=== PATIENT | male | born 1985 | race African-American/Black ===

== ENCOUNTER 2017-03-19 12:45 | Emergency (ER) | payer SELFPAY ==
[~2017-03-19] VITALS: Ht 188 cm; Wt 75.0 kg
[2017-03-19] MEDS ORDERED: IOHEXOL 350 MG/ML 10 ML VIAL (for RAD DIAG) IVCONTRAST ONE (12:46)
[2017-03-19] MEDS ORDERED: SODIUM CHLOR 0.9% 1000 ML INJ 1,000 ML IV SCH (13:02)
--- NOTE | 2017-03-19 13:02 | PD ---
HPI Chief Complaint: Abdominal pain Time Seen by Provider: 13:02 Travel History International Travel<30 days: No Contact w/Intl Traveler<30days: No Traveled to known affect area: No History of Present Illness HPI 32-year-old Afro-[place]og[place] male presents the emergency department via EMS with complaints of abdominal pain and inability to eat. Patient has history of 5 biliary stents. The last that was placed on February 19, 2017. Patient states he is visiting here from [facility]. He is here for the next several days but states he couldn't wait to go home to see his commercial green retrofit architect. Patient states the pain is now 10 out of 10, he is nauseous, and unable to eat for the past 2 days. He denies fever, chills, or changes in his bowels or urination. Pain is centralized to the abdomen. He has no shortness of breath or chest pain. He has no known drug allergies. PFSH Social History Alcohol Use: Yes Tobacco Use: Yes Substance Use: No Allergies-Medications (Allergen,Severity, Reaction): Coded Allergies: No Known Allergies (Unverified , 03/19/17) Reported Meds & Prescriptions Reported Meds & Active Scripts Active Ultram (Tramadol HCl) 50 Mg Tab 50 Mg PO Q6H PRN Omeprazole 40 Mg Cap 40 Mg PO DAILY Creon (Pancrelipase) 3,000-9,500-15,000 Units Cap 1 Cap PO TIDPC Reported Alprazolam 2 Mg Tab 2 Mg PO BID [Stelazine] 5 Mg PO BID Trazodone (Trazodone HCl) 300 Mg Tab 300 Mg PO HS Seroquel (Quetiapine Fumarate) 300 Mg Tab 600 Mg PO HS Metoprolol Succinate ER 24 HR (Metoprolol Succinate) 50 Mg Tab 50 Mg PO BID Lantus Inj (Insulin Glargine) 1,000 Unit/10 Ml Vial 10 Units SQ DAILY Lantus Inj (Insulin Glargine) 1,000 Unit/10 Ml Vial 30 Units SQ HS Review of Systems Except as stated in HPI: all other systems reviewed are Neg General / Constitutional: No: Fever, Chills Eyes: No: Visual changes HENT: No: Headaches Cardiovascular: No: Chest Pain or Discomfort Respiratory: No: Shortness of Breath Gastrointestinal: Positive: Nausea, Abdominal Pain, Loss of Appetite, No: Vomiting, Diarrhea, Hematemesis, Hematochezia, Constipation, Changes in Bowel Habits, Indigestion, Dysphagia Genitourinary: No: Urgency, Frequency, Dysuria Musculoskeletal: No: Pain Skin: No Rash Neurologic: No: Weakness Psychiatric: No: Depression Endocrine: No: Polydipsia Hematologic/Lymphatic: No: Easy Bruising Physical Exam Narrative GENERAL: Patient appears in moderate distress. SKIN: Warm and dry. Normal color. Normal turgor. HEAD: Atraumatic. Normocephalic. EYES: Pupils equal and round. No scleral icterus. No injection or drainage. ENT: No nasal bleeding or discharge. Mucous membranes pink and moist. Pharynx is clear. Airway is patent. NECK: Trachea midline. Supple nontender. CARDIOVASCULAR: Regular rate and rhythm. RESPIRATORY: No accessory muscle use. Clear to auscultation. Breath sounds equal bilaterally. GASTROINTESTINAL: Abdomen soft, moderate generalized epigastric tenderness, nondistended. No CVA tenderness. Hepatic and splenic margins not palpable. MUSCULOSKELETAL: Extremities without clubbing, cyanosis, or edema. No obvious deformities. NEUROLOGICAL: Awake and alert. No obvious cranial nerve deficits. Motor grossly within normal limits. Five out of 5 muscle strength in the arms and legs. Normal speech. PSYCHIATRIC: Appropriate mood and affect; insight and judgment normal. Data Data Last Documented VS Vital Signs Date Time Temp Pulse Resp B/P (MAP) Pulse Ox O2 Delivery O2 Flow Rate FiO2 03/19/17 15:28 63 12 171/107 (128) 100 Room Air 03/19/17 13:33 98.1 Orders Orders Complete Blood Count With Diff (03/19/17 13:02) Comprehensive Metabolic Panel (03/19/17 13:02) Lipase (03/19/17 13:02) Lactic Acid (03/19/17 13:02) Prothrombin Time / Inr (Pt) (03/19/17 13:02) Act Partial Throm Time (Ptt) (03/19/17 13:02) Ct Abd/Pel W Iv Contrast(Rout) (03/19/17 13:02) Iv Access Insert/Monitor (03/19/17 13:02) Ecg Monitoring (03/19/17 13:02) Oximetry (03/19/17 13:02) NPO (03/19/17 13:02) Morphine Inj (Morphine Inj) (03/19/17 13:15) Ondansetron Inj (Zofran Inj) (03/19/17 13:15) Sodium Chlor 0.9% 1000 Ml Inj (Ns 1000 M (03/19/17 13:02) Sodium Chloride 0.9% Flush (Ns Flush) (03/19/17 13:15) Electrocardiogram (03/19/17 13:02) Chest, Single Ap (03/19/17 13:02) Ketorolac Inj (Toradol Inj) (03/19/17 15:15) Iohexol 350 Inj (Omnipaque 350 Inj) (03/19/17 12:46) Pantoprazole (Protonix) (03/19/17 16:45) Ed Discharge Order (03/19/17 16:36) Labs Laboratory Tests Test 03/19/17 13:49 White Blood Count 8.5 TH/MM3 Red Blood Count 5.90 MIL/MM3 Hemoglobin 14.3 GM/DL Hematocrit 45.3 % Mean Corpuscular Volume 76.7 FL Mean Corpuscular Hemoglobin 24.2 PG Mean Corpuscular Hemoglobin Concent 31.5 % Red Cell Distribution Width 13.9 % Platelet Count 222 TH/MM3 Mean Platelet Volume 7.8 FL Neutrophils (%) (Auto) 63.2 % Lymphocytes (%) (Auto) 28.3 % Monocytes (%) (Auto) 6.1 % Eosinophils (%) (Auto) 2.0 % Basophils (%) (Auto) 0.4 % Neutrophils # (Auto) 5.3 TH/MM3 Lymphocytes # (Auto) 2.4 TH/MM3 Monocytes # (Auto) 0.5 TH/MM3 Eosinophils # (Auto) 0.2 TH/MM3 Basophils # (Auto) 0.0 TH/MM3 CBC Comment DIFF FINAL Differential Comment Prothrombin Time 10.1 SEC Prothromb Time International Ratio 0.9 RATIO Activated Partial Thromboplast Time 27.0 SEC Blood Urea Nitrogen 5 MG/DL Creatinine 0.72 MG/DL Random Glucose 224 MG/DL Total Protein 6.9 GM/DL Albumin 3.3 GM/DL Calcium Level 8.5 MG/DL Alkaline Phosphatase 95 U/L Aspartate Amino Transf (AST/SGOT) 15 U/L Alanine Aminotransferase (ALT/SGPT) 14 U/L Total Bilirubin 0.2 MG/DL Sodium Level 137 MEQ/L Potassium Level 4.3 MEQ/L Chloride Level 102 MEQ/L Carbon Dioxide Level 28.6 MEQ/L Anion Gap 6 MEQ/L Estimat Glomerular Filtration Rate 152 ML/MIN Lactic Acid Level 1.0 mmol/L Lipase 72 U/L [facility] Medical Decision Making Medical Screen Exam Complete: Yes Emergency Medical Condition: Yes Differential Diagnosis Abdominal pain. Biliary colic. Pancreatitis. Acute hepatitis. Narrative Course Patient appears in moderate distress but medically stable. Labs ordered including CBC, CMP, lipase, urinalysis, PT PTT and INR. EKG is ordered. It shows normal sinus rhythm, with possible right ventricular conduction delay. This reviewed with Dr. Dennis. Chest x-ray and abdominal CT with IV contrast was ordered. IV access is obtained patient is given 4 mg Zofran IV as well as 4 mg morphine IV. Patient is given 1000 mL normal saline bolus. Chest x-ray is unremarkable except for blunting of the left costophrenic angle.. CBC is unremarkable. Coagulation studies are normal. Chemistries are normal except for random glucose of 224. Lipase is 72. Albumin 3.3. Abdominal CT scan shows no acute process per radiologist. It is in position with small pseudocyst near it without obvious signs of acute findings. Patient was given Toradol 30 mg IV. Patient discussed with Dr. Dennis. Patient is felt to be medically stable for discharge home. Patient will be treated with Creon 3 times a day. Patient also given omeprazole 40 mg daily #30. Patient given Ultram 50 mg one every 6 hours when necessary pain #20. Patient is to follow with his commercial green retrofit architect in [place] as discussed. Diagnosis Primary Impression: Chronic calcific pancreatitis Additional Impression: Abdominal pain Qualified Codes: R10.10 - Upper abdominal pain, unspecified Referrals: Director Learning And Development Primary Care Physician Patient Instructions: Biliary Colic (ED), Diet for Stomach Ulcers and Gastritis (ED), General Instructions Additional Instructions: Patient is felt to be medically stable for discharge home. Patient will be treated with Creon 3 times a day. Patient also given omeprazole 40 mg daily #30. Patient given Ultram 50 mg one every 6 hours when necessary pain #20. Patient is to follow with his commercial green retrofit architect in [place] as discussed. Med/Other Pt SpecificInfo: Prescription(s) given Scripts Tramadol (Ultram) 50 Mg Tab 50 MG PO Q6H Y for PAIN, #20 TAB 0 Refills Prov: Jose Dennis MD 03/19/17 Omeprazole (Omeprazole) 40 Mg Cap 40 MG PO DAILY, #30 CAP 0 Refills Prov: Jose Dennis MD 03/19/17 Pancrelipase (Creon) 3,000-9,500-15,000 Units Cap 1 CAP PO TIDPC for Digestive Aid, #90 CAP 0 Refills Prov: Jose Dennis MD 03/19/17 Disposition: 01 DISCHARGE HOME Condition: Stable Robin Sorto Mar 19, 2017 13:02
[2017-03-19] MEDS ORDERED: ONDANSETRON HCL 4 MG/2 ML VIAL IVP ONE (13:15)
[2017-03-19] MEDS ORDERED: MORPHINE SULFATE 4 MG/ML INJ IV PUSH ONE (13:15)
[2017-03-19 13:30] VITALS: BP 184/115; PULSE 63; RESP 12; TEMP 98.1; O2SAT 100
[2017-03-19 13:33] VITALS: BP 184/115; PULSE 64; RESP 12; TEMP 98.1; O2SAT 100
[2017-03-19] MEDS ORDERED: METO1TAB9 PO (13:52)
[2017-03-19] MEDS ORDERED: LANTUS2P SQ ×2 (13:52)
[2017-03-19] MEDS ORDERED: ALPR2TAB3 PO (13:56)
[2017-03-19] MEDS ORDERED: TRAZ300T2 PO (13:56)
[2017-03-19] MEDS ORDERED: SERO300T PO (13:56)
[2017-03-19] MEDS ORDERED: STELAZINE PO (13:56)
[2017-03-19] MEDS: SODIUM CHLORIDE 0.9% FLUSH 10 ML FLUSH IV FLUSH PRN ×2 (14:02→15:27)
[2017-03-19 14:15] VITALS: BP 186/115; PULSE 64; RESP 12; O2SAT 100
--- NOTE | 2017-03-19 14:22 | RADRPT ---
EXAM DATE/TIME: 03/19/2017 13:21 CORRECTION Corrected on: March 19, 2017; [facility] COMPARISON: No previous studies available for comparison. INDICATIONS : Short of breath, pain, nausea , evaluate for free air, pain left upper quadrant MEDICAL HISTORY : None. SURGICAL HISTORY : None. ENCOUNTER: Initial ACUITY: 3 days PAIN SCORE: Non-responsive. LOCATION: Bilateral chest FINDINGS: The heart and mediastinal structures are normal. There is blunting of the left costophrenic recess co nsistent with pleural thickening or tiny pleural effusion. No pulmonary vascular congestion is noted. No focal alveolar consolidation is noted. No definite free intraperitoneal air is noted. CONCLUSION: Blunting of the left costophrenic recess consistent with pleural thickening or tiny pleural effusion. No definite free intraperitoneal air. No focal infiltrate or pulmonary vascular congestion. González Ponce MD on March 19, 2017 at 14:20 Board Certified Radiologist. This report was verified electronically. González Ponce MD on March 19, 2017 at 14:24 Board Certified Radiologist. This report was verified electronically.
[2017-03-19 14:39] LABS: AUTOMATED NEUTROPHIL # 5.3 TH/MM3 (1.8-7.7); BASOPHIL % 0.4 % (0.0-2.0); EOSINOPHIL # 0.2 TH/MM3 (0-0.4); HEMATOCRIT 45.3 % (39.0-51.0); HEMO FLAGS DIFF FINAL; LYMPH % 28.3 % (9.0-44.0); LYMPHOCYTE # 2.4 TH/MM3 (1.0-4.8); MEAN CELL VOLUME 76.7 FL (80.0-100.0); MEAN CORPUSCULAR HEMOGLOBIN 24.2 PG (27.0-34.0); MEAN CORPUSCULAR HGB CONC 31.5 % (32.0-36.0); MONO % 6.1 % (0.0-8.0); NEUT % 63.2 % (16.0-70.0); PLATELET COUNT 222 TH/MM3 (150-450); RED CELL DISTRIBUTION WIDTH 13.9 % (11.6-17.2); WHITE BLOOD COUNT 8.5 TH/MM3 (4.0-11.0)
[2017-03-19 15:01] LABS: INTERNATIONAL NORMALIZED RATIO 0.9 RATIO; PROTHROMBIN TIME - PATIENT 10.1 SEC (9.8-11.6)
[2017-03-19 15:02] LABS: ALT (GPT) 14 U/L (12-78); ANION GAP 6 MEQ/L (5-15); AST (GOT) 15 U/L (15-37); BICARBONATE 28.6 MEQ/L (21.0-32.0); BLOOD UREA NITROGEN 5 MG/DL (7-18); CHLORIDE 102 MEQ/L (98-107); GLOMERULAR FILTRATION RATE 152 ML/MIN (>89); POTASSIUM 4.3 MEQ/L (3.5-5.1); SODIUM (NA) 137 MEQ/L (136-145)
[2017-03-19 15:04] LABS: ALKALINE PHOSPHATASE 95 U/L (45-117); TOTAL BILIRUBIN ADULT 0.2 MG/DL (0.2-1.0)
[2017-03-19] MEDS ORDERED: KETOROLAC TROMETHAMINE 30 MG/ML (IVP) VIAL IV PUSH ONE (15:15)
[2017-03-19 15:28] VITALS: BP 171/107; PULSE 63; RESP 12; O2SAT 100
--- NOTE | 2017-03-19 16:27 | RADRPT ---
EXAM DATE/TIME: 03/19/2017 15:35 [facility] COMPARISON: No previous studies available for comparison. INDICATIONS : Abdomen pain for a few days, nausea IV CONTRAST: 97 cc Omnipaque 350 (iohexol) IV ORAL CONTRAST: No oral contrast ingested. RADIATION DOSE: 6.64 CTDIvol (mGy) MEDICAL HISTORY : Cardiovascular disease. Diabetes SURGICAL HISTORY : Stent in stomach ENCOUNTER: Initial ACUITY: 2 days PAIN SCALE: 10/10 LOCATION: Abdomen TECHNIQUE: Volumetric scanning of the abdomen and pelvis was performed. Using automated exposure control and ad justment of the mA and/or kV according to patient size, radiation dose was kept as low as reasonably achievable to obtain optimal diagnostic quality images. DICOM format image data is available electro nically for review and comparison. FINDINGS: Numerous and extensive varices in the left upper quadrant extending under the left hemidiaphragm and into the left perisplenic region. LOWER LUNGS: There is a small area of irregular opacity on the superior most image of this scan anterior and right lower lung is of uncertain significance, but possibly represents scarring. No evidence of pleural e ffusion. No periesophageal varices. LIVER: Homogeneous density without lesion. There is no dilation of the biliary tree. No calcified gallston es. SPLEEN: Normal size without lesion. PANCREAS: Extensive punctate calcifications throughout the pancreas. There is a drain which courses through th e tail and body of the pancreas and with a pigtail loop either in the lesser sac or stomach; the loca tion of the proximal loop of the drain can not be determined with certainty. There is a 12 mm oval h ypodense area in the mid body anterior to the stent which could represent a small pseudocyst. There is poor delineation of the peripancreatic fat. No focal free fluid in the anterior pararenal space. KIDNEYS: Normal in size and shape. There is no mass, stone or hydronephrosis. ADRENAL GLANDS: Within normal limits. VASCULAR: There is no aortic aneurysm. BOWEL/MESENTERY: The stomach, small bowel, and colon demonstrate no acute abnormality. There is no free intraperitone al air or fluid. ABDOMINAL WALL: Within normal limits. RETROPERITONEUM: There is no lymphadenopathy. BLADDER: No wall thickening or mass. REPRODUCTIVE: Within normal limits. INGUINAL: There is no lymphadenopathy or hernia. MUSCULOSKELETAL: Within normal limits for patient age. CONCLUSION: 1. Findings suggest chronic pancreatitis with diffuse calcifications in the pancreas, 12 mm cyst in t he mid body, and a catheter which courses from tail of pancreas into either the stomach or the lesser sac. 2. No evidence of ascites. 3. Small area of scarring in the anterior right lower lung. The case has been discussed with ANGELINA Gregg MD on March 19, 2017 at 16:10 Board Certified Radiologist. This report was verified electronically.
[2017-03-19] MEDS ORDERED: CREO3000 PO (16:36)
[2017-03-19] MEDS ORDERED: TRAM50 PO (16:36)
[2017-03-19] MEDS ORDERED: OMEP40CA2 PO (16:36)
--- NOTE | 2017-03-19 16:44 | PD ---
Data Data Last Documented VS Vital Signs Date Time Temp Pulse Resp B/P (MAP) Pulse Ox O2 Delivery O2 Flow Rate FiO2 03/19/17 15:28 63 12 171/107 (128) 100 Room Air 03/19/17 13:33 98.1 Orders Orders Complete Blood Count With Diff (03/19/17 13:02) Comprehensive Metabolic Panel (03/19/17 13:02) Lipase (03/19/17 13:02) Lactic Acid (03/19/17 13:02) Prothrombin Time / Inr (Pt) (03/19/17 13:02) Act Partial Throm Time (Ptt) (03/19/17 13:02) Ct Abd/Pel W Iv Contrast(Rout) (03/19/17 13:02) Iv Access Insert/Monitor (03/19/17 13:02) Ecg Monitoring (03/19/17 13:02) Oximetry (03/19/17 13:02) NPO (03/19/17 13:02) Morphine Inj (Morphine Inj) (03/19/17 13:15) Ondansetron Inj (Zofran Inj) (03/19/17 13:15) Sodium Chlor 0.9% 1000 Ml Inj (Ns 1000 M (03/19/17 13:02) Sodium Chloride 0.9% Flush (Ns Flush) (03/19/17 13:15) Electrocardiogram (03/19/17 13:02) Chest, Single Ap (03/19/17 13:02) Ketorolac Inj (Toradol Inj) (03/19/17 15:15) Iohexol 350 Inj (Omnipaque 350 Inj) (03/19/17 12:46) Pantoprazole (Protonix) (03/19/17 16:45) Ed Discharge Order (03/19/17 16:36) Labs Laboratory Tests Test 03/19/17 13:49 White Blood Count 8.5 TH/MM3 Red Blood Count 5.90 MIL/MM3 Hemoglobin 14.3 GM/DL Hematocrit 45.3 % Mean Corpuscular Volume 76.7 FL Mean Corpuscular Hemoglobin 24.2 PG Mean Corpuscular Hemoglobin Concent 31.5 % Red Cell Distribution Width 13.9 % Platelet Count 222 TH/MM3 Mean Platelet Volume 7.8 FL Neutrophils (%) (Auto) 63.2 % Lymphocytes (%) (Auto) 28.3 % Monocytes (%) (Auto) 6.1 % Eosinophils (%) (Auto) 2.0 % Basophils (%) (Auto) 0.4 % Neutrophils # (Auto) 5.3 TH/MM3 Lymphocytes # (Auto) 2.4 TH/MM3 Monocytes # (Auto) 0.5 TH/MM3 Eosinophils # (Auto) 0.2 TH/MM3 Basophils # (Auto) 0.0 TH/MM3 CBC Comment DIFF FINAL Differential Comment Prothrombin Time 10.1 SEC Prothromb Time International Ratio 0.9 RATIO Activated Partial Thromboplast Time 27.0 SEC Blood Urea Nitrogen 5 MG/DL Creatinine 0.72 MG/DL Random Glucose 224 MG/DL Total Protein 6.9 GM/DL Albumin 3.3 GM/DL Calcium Level 8.5 MG/DL Alkaline Phosphatase 95 U/L Aspartate Amino Transf (AST/SGOT) 15 U/L Alanine Aminotransferase (ALT/SGPT) 14 U/L Total Bilirubin 0.2 MG/DL Sodium Level 137 MEQ/L Potassium Level 4.3 MEQ/L Chloride Level 102 MEQ/L Carbon Dioxide Level 28.6 MEQ/L Anion Gap 6 MEQ/L Estimat Glomerular Filtration Rate 152 ML/MIN Lactic Acid Level 1.0 mmol/L Lipase 72 U/L MDM Supervised Visit with YUMIKO: Yes Narrative Course The history, exam, and medical decision-making in the associated mid-level provider note were completed with my assistance. I reviewed and agree with the findings presented. I attest that I had a [id number] encounter with the patient on the same day, and personally performed and documented my assessment and findings in the medical record. *My assessment and Findings: So 32-year-old man who presents to the emergency department with chronic abdominal problems seem to be related to chronic pancreatitis, pseudocyst, and pancreatic duct obstruction. He reportedly has had multiple stents placed most recently about a month or so ago. He's visiting from out of town is been having worsening pain. Looks uncomfortable and nontoxic. Labs and CT showed no acute findings. Recommend outpatient follow-up. Diagnosis Primary Impression: Chronic calcific pancreatitis Additional Impression: Abdominal pain Qualified Codes: R10.10 - Upper abdominal pain, unspecified Referrals: Certified Phlebotomy Technician Primary Care Physician Patient Instructions: General Instructions, Biliary Colic (ED), Diet for Stomach Ulcers and Gastritis (ED) Additional Instruction: Patient is felt to be medically stable for discharge home. Patient will be treated with Creon 3 times a day. Patient also given omeprazole 40 mg daily #30. Patient given Ultram 50 mg one every 6 hours when necessary pain #20. Patient is to follow with his seat nailer in [place] as discussed. Scripts Tramadol (Ultram) 50 Mg Tab 50 MG PO Q6H Y for PAIN, #20 TAB 0 Refills Prov: Jose Dennis MD 03/19/17 Omeprazole (Omeprazole) 40 Mg Cap 40 MG PO DAILY, #30 CAP 0 Refills Prov: Jose Dennis MD 03/19/17 Pancrelipase (Creon) 3,000-9,500-15,000 Units Cap 1 CAP PO TIDPC for Digestive Aid, #90 CAP 0 Refills Prov: Jose Dennis MD 03/19/17 Disposition: 01 DISCHARGE HOME Condition: Stable Jose Dennis MD Mar 19, 2017 16:44
[2017-03-19] MEDS ORDERED: PANTOPRAZOLE SOD 40 MG DELAYED RELEASE TAB PO ONE (16:45)
--- NOTE | 2017-03-19 21:13 | EKG ---
Date Performed: 03/19/2017 Time Performed: 13:34:47 PTAGE: 32 years EKG: Sinus rhythm POSSIBLE RIGHT VENTRICULAR CONDUCTION DELAY SEPTAL MYOCARDIAL INFARCTION ABNORMAL ECG NO PREVIOUS TRACING DOCTOR: Mabel Lux Interpretating Date/Time 03/19/2017 21:11:09
[2017-03-20] MEDS ORDERED: TRIF5TAB PO (11:22)
== END 2017-03-19 17:18 | disposition home or self-care (01) ==
LOC: NEPC 12:45
DX: K86.1 Other chronic pancreatitis (principal); R10.10 Upper abdominal pain, unspecified; R94.31 Abnormal electrocardiogram [ECG] [EKG]; Z72.0 Tobacco use
CPT/HCPCS: 71010; 74177; 80053; 83605; 83690; 85025; 85610; 85730; 93005; 96361; 96374; 96375; 99285; J1885; J2270; J2405; J7030; Q9967